=== PATIENT | male | born 1985 | race Caucasian/White ===

== ENCOUNTER → 2016-11-28 | Outpatient (CLI) | payer OTHER ==
[~2016-11-28] MED LIST: ANAPROX DS550 MG PO; CEPHALEXIN500 M1 PO; CIPRO500 MG PO; CIPROFLOXACIN500 MG PO; CLARITIN10 MG PO; DAYPRO600 M1 PO; FLEXERIL5 MG PO; HYDROCODONE BIT1 T11 PO; KEFLEX500 MG PO; LOMOTIL 0.025 M1 TAB PO; MOTRIN800 MG PO; Motrin,Rufen800 MG PO; NAPROSYN500 MG PO; NORCO 5-325 TA1 EACH PO; PERCOCET 325 MG1 TA2 PO; ROBAXIN750 MG PO; TRAMADOL HCL50 MG PO; VENTOLIN H0.09 MG/AC INH; VICODIN 500 MG-1 TAB PO; ZOFRAN ODT8 MG PO
[2016-11-28 07:35] LABS: HEMATOCRIT 45.4 % (42.0-52.0); HEMOGLOBIN 15.6 g/dl (14.0-18.0); MEAN CELL VOLUME 91.7 fl (80.0-94.0); MEAN CORPUSCULAR HGB 31.5 pg (27.0-31.0); MEAN CORPUSCULAR HGB CONC 34.4 g/dl (33.0-37.0); MEAN PLATELET VOLUME 8.8 fl (9.6-12.3); RED BLOOD COUNT 4.95 10*6/uL (4.50-5.90); RED CELL DISTRI WIDTH 11.9 % (0-14.5); WHITE BLOOD COUNT 4.5 10*3/uL (4.8-10.8)
[2016-11-28 08:21] LABS: ALBUMIN 3.8 gm/dl (3.1-4.5); ALKALINE PHOSPHATASE 81 U/L (45-117); BILIRUBIN, TOTAL 0.3 mg/dl (0.2-1.0); BUN 20 mg/dl (7-24); CARBON DIOXIDE 31 mmol/L (21-32); CHLORIDE 106 mmol/L (98-107); CHOLESTEROL 170 mg/dL (<200); EST GLOM FILT AFRICAN AMERICAN > 60 ml/min; GLUCOSE 79 mg/dL (65-99); HDL CHOLESTEROL 60 mg/dl (40-60); LDL CHOLESTEROL 97 mg/dL (9-159); POTASSIUM 4.3 mmol/L (3.5-5.1); SGOT/AST 20 IU/L (3-35); SGPT/ALT 23 U/L (12-78); SODIUM 143 mmol/L (136-145); TOTAL PROTEIN 6.9 gm/dL (6.4-8.2); TRIGLYCERIDES 66 mg/dl (<150); VLDL CHOLESTEROL 13 mg/dL (6-40)
== END | disposition home or self-care (01) ==
LOC: LAB 07:10
PROVIDERS: Family Medicine
DX: E78.00 Pure hypercholesterolemia, unspecified (principal); E55.9 Vitamin D deficiency, unspecified; R53.83 Other fatigue; E74.00 Glycogen storage disease, unspecified; F41.1 Generalized anxiety disorder; R42 Dizziness and giddiness

== ENCOUNTER → 2017-03-21 | Outpatient (CLI) | payer OTHER ==
[2017-03-21 18:00] LABS: HEMATOCRIT 46.1 % (42.0-52.0); HEMOGLOBIN 15.6 g/dl (14.0-18.0); MEAN CELL VOLUME 92.4 fl (80.0-94.0); MEAN CORPUSCULAR HGB 31.3 pg (27.0-31.0); MEAN CORPUSCULAR HGB CONC 33.8 g/dl (33.0-37.0); MEAN PLATELET VOLUME 8.8 fl (9.6-12.3); RED BLOOD COUNT 4.99 10*6/uL (4.50-5.90); RED CELL DISTRI WIDTH 12.1 % (0-14.5); WHITE BLOOD COUNT 8.1 10*3/uL (4.8-10.8)
[2017-03-22 08:16] LABS: HEPATITIS C VIRUS ANTIBODY <0.1 s/co (0.0-0.9); HIV 1+2 AB + HIV1 P24 AG Non Reactive (Non Reactive)
== END | disposition home or self-care (01) ==
LOC: LAB 17:33
PROVIDERS: Family Medicine
DX: D72.819 Decreased white blood cell count, unspecified (principal); Z20.2 Contact with and (suspected) exposure to infections with a predominantly sexual mode of transmission

== ENCOUNTER → 2018-10-05 | Outpatient (CLI) | payer OTHER ==
[2018-10-05 13:33] LABS: HEMATOCRIT 41.9 % (42.0-52.0); HEMOGLOBIN 14.6 g/dl (14.0-18.0); MEAN CELL VOLUME 90.3 fl (80.0-94.0); MEAN CORPUSCULAR HGB 31.5 pg (27.0-31.0); MEAN CORPUSCULAR HGB CONC 34.8 g/dl (33.0-37.0); MEAN PLATELET VOLUME 8.7 fl (9.6-12.3); RED BLOOD COUNT 4.64 10*6/uL (4.50-5.90); RED CELL DISTRI WIDTH 11.9 % (0-14.5); WHITE BLOOD COUNT 5.4 10*3/uL (4.8-10.8)
[2018-10-05 13:49] LABS: ALBUMIN 3.9 gm/dl (3.1-4.5); ALKALINE PHOSPHATASE 76 U/L (45-117); BUN 15 mg/dl (7-24); CHLORIDE 107 mmol/L (98-107); CHOLESTEROL 144 mg/dL (<200); CREATININE 1.11 mg/dL (0.70-1.30); HDL CHOLESTEROL 55 mg/dl (40-60); LDL CHOLESTEROL 80 mg/dL (9-159); POTASSIUM 3.8 mmol/L (3.5-5.1); SGOT/AST 18 IU/L (3-35); SGPT/ALT 24 U/L (12-78); SODIUM 140 mmol/L (136-145); TOTAL PROTEIN 6.9 gm/dL (6.4-8.2); TRIGLYCERIDES 45 mg/dl (<150); VLDL CHOLESTEROL 9 mg/dL (6-40)
[2018-10-06 11:04] LABS: HEPATITIS B SURFACE AG Negative (Negative); HEPATITIS C VIRUS ANTIBODY <0.1 s/co (0.0-0.9)
== END | disposition home or self-care (01) ==
LOC: LAB 13:05
PROVIDERS: Family Medicine
DX: Z13.220 Encounter for screening for lipoid disorders (principal); G62.9 Polyneuropathy, unspecified; M54.9 Dorsalgia, unspecified; F19.90 Other psychoactive substance use, unspecified, uncomplicated

== ENCOUNTER 2019-07-26 12:32 | Emergency (ER) | payer OTHER ==
[~2019-07-26] VITALS: Wt 56.7 kg
[2019-07-26] MEDS ORDERED: ZITHROMAX250 MG PO (14:28)
[2019-07-26] MEDS ORDERED: MEDROL DOSEPAK4 MG PO (14:28)
== END 2019-07-26 14:36 | disposition home or self-care (01) ==
LOC: ED 12:32
DX: J45.909 Unspecified asthma, uncomplicated (principal); Z88.2 Allergy status to sulfonamides

== ENCOUNTER 2020-06-21 20:29 | Emergency (ER) | payer OTHER ==
[~2020-06-21] VITALS: Ht 179.8 cm; Wt 63.5 kg
[~2020-06-21 20:29] MED LIST changes: +MEDROL DOSEPAK4 MG PO; +ZITHROMAX250 MG PO
[2020-06-21 21:19] LABS: BASO # 0.1 10*3/uL (0.0-0.1); EOS # 0.2 10*3/uL (0.0-0.4); EOS % 2.2 % (1.0-4.0); HEMATOCRIT 43.1 % (42.0-52.0); LYMPH # 1.8 10*3/uL (1.3-4.4); MEAN CELL VOLUME 90.9 fl (80.0-94.0); MEAN CORPUSCULAR HGB 30.4 pg (27.0-31.0); MEAN CORPUSCULAR HGB CONC 33.4 g/dl (33.0-37.0); MEAN PLATELET VOLUME 8.7 fl (9.6-12.3); MONO # 0.6 10*3/uL (0.1-1.0); MONO % 6.7 % (3.0-9.0); NEUT # 5.7 10*3/uL (2.3-7.9); NEUT % 67.9 % (47.0-73.0); PLATELET COUNT AUTOMATED 272 10*3/uL (130-400); RED BLOOD COUNT 4.74 10*6/uL (4.50-5.90); WHITE BLOOD COUNT 8.4 10*3/uL (4.8-10.8)
[2020-06-21 21:34] LABS: ALBUMIN 3.9 gm/dl (3.1-4.5); ALKALINE PHOSPHATASE 90 U/L (45-117); BUN 16 mg/dl (7-24); CHLORIDE 105 mmol/L (98-107); CREATININE 1.12 mg/dL (0.70-1.30); POTASSIUM 4.2 mmol/L (3.5-5.1); SGOT/AST 24 IU/L (3-35); SGPT/ALT 25 U/L (12-78); SODIUM 140 mmol/L (136-145); TOTAL PROTEIN 6.8 gm/dL (6.4-8.2)
[2020-06-21] MEDS ORDERED: IBU800 MG PO (22:54)
[2020-06-21 22:59] LABS: CLARITY CLEAR (CLEAR); COLOR YELLOW (YELLOW)
[2020-06-21 23:01] LABS: BILIRUBIN NEGATIVE (NEGATIVE); BLOOD TRACE-INTACT (NEGATIVE); GLUCOSE NEGATIVE (NEGATIVE); KETONE NEGATIVE (NEGATIVE)
[2020-06-21 23:02] LABS: LEUKO ESTERASE NEGATIVE (NEGATIVE); NITRITE NEGATIVE (NEGATIVE); UROBILINOGEN 0.2 E.U./dl (0.2-1.0)
[2020-06-21 23:06] LABS: BACTERIA TRACE; EPITHELIAL CELLS 0-2; MUCOUS 2+
== END 2020-06-21 23:25 | disposition home or self-care (01) ==
LOC: ED 20:29
PROVIDERS: Nurse Practitioner Family
DX: I86.1 Scrotal varices (principal); J45.909 Unspecified asthma, uncomplicated; Z88.2 Allergy status to sulfonamides

== ENCOUNTER → 2020-12-17 | Outpatient (CLI) | payer OTHER ==
[~2020-12-17] MED LIST changes: +IBU800 MG PO
[2020-12-17 17:41] LABS: HEMATOCRIT 43.5 % (42.0-52.0); MEAN CELL VOLUME 90.1 fl (80.0-94.0); MEAN CORPUSCULAR HGB 31.3 pg (27.0-31.0); MEAN CORPUSCULAR HGB CONC 34.7 g/dl (33.0-37.0); MEAN PLATELET VOLUME 8.6 fl (9.6-12.3); RED BLOOD COUNT 4.83 10*6/uL (4.50-5.90); RED CELL DISTRI WIDTH 11.9 % (0-14.5); WHITE BLOOD COUNT 5.7 10*3/uL (4.8-10.8)
[2020-12-17 18:13] LABS: ALBUMIN 4.2 gm/dl (3.1-4.5); BUN 15 mg/dl (7-24); CHLORIDE 108 mmol/L (98-107); CHOLESTEROL 166 mg/dL (<200); CREATININE 0.93 mg/dL (0.70-1.30); POTASSIUM 4.4 mmol/L (3.5-5.1); SGOT/AST 22 IU/L (3-35); SGPT/ALT 25 U/L (12-78); SODIUM 140 mmol/L (136-145); TRIGLYCERIDES 61 mg/dl (<150); VLDL CHOLESTEROL 12 mg/dL (6-40)
[2020-12-17 18:19] LABS: ALKALINE PHOSPHATASE 85 U/L (45-117); FREE T4 0.92 ng/dl (0.76-1.46); HDL CHOLESTEROL 54 mg/dl (40-60); LDL CHOLESTEROL 100 mg/dL (9-159)
[2020-12-18 09:07] LABS: HEP B CORE AB, IGM Negative (Negative); HEPATITIS B SURFACE AG Negative (Negative); HEPATITIS C VIRUS ANTIBODY <0.1 s/co (0.0-0.9)
== END | disposition home or self-care (01) ==
LOC: LAB 16:52
PROVIDERS: ATTEND Family Medicine
DX: E78.00 Pure hypercholesterolemia, unspecified (principal); R00.2 Palpitations; R07.9 Chest pain, unspecified

== ENCOUNTER → 2020-12-29 | Outpatient (CLI) | payer OTHER | END | disposition home or self-care (01) | LOC: CARD 07:46 | PROVIDERS: ATTEND Family Medicine | DX: R00.2 Palpitations (principal) ==

== ENCOUNTER 2021-03-26 12:34 | Emergency (ER) | payer OTHER ==
[~2021-03-26] VITALS: Ht 175.2 cm; Wt 65.8 kg
[2021-03-26] MEDS ORDERED: IBUPROFEN600 MG PO (16:17)
[2021-03-26] MEDS ORDERED: HYDROCODONE-AC1 EAC1 PO (16:17)
== END 2021-03-26 16:26 | disposition home or self-care (01) ==
LOC: ED 12:34
DX: S20.212A Contusion of left front wall of thorax, initial encounter (principal); Z88.2 Allergy status to sulfonamides; Z79.899 Other long term (current) drug therapy; Z98.890 Other specified postprocedural states; X50.9XXA Other and unspecified overexertion or strenuous movements or postures, initial encounter; Y93.89 Activity, other specified; Y92.89 Other specified places as the place of occurrence of the external cause; Y99.8 Other external cause status

== ENCOUNTER 2021-09-03 21:00 | Emergency (ER) | payer OTHER ==
[~2021-09-03] VITALS: Ht 175.2 cm; Wt 63.5 kg
[~2021-09-03 21:00] MED LIST changes: +HYDROCODONE-AC1 EAC1 PO; +IBUPROFEN600 MG PO
[2021-09-04] MEDS ORDERED: IBUPROFEN600 MG PO (15:48)
== END 2021-09-03 22:15 | disposition left against medical advice (07) ==
LOC: ED 21:00
DX: S49.92XA Unspecified injury of left shoulder and upper arm, initial encounter (principal); Z53.21 Procedure and treatment not carried out due to patient leaving prior to being seen by health care provider; X58.XXXA Exposure to other specified factors, initial encounter; Y93.89 Activity, other specified; Y92.89 Other specified places as the place of occurrence of the external cause; Y99.8 Other external cause status

== ENCOUNTER 2021-09-04 13:26 | Emergency (ER) | payer OTHER ==
[~2021-09-04] VITALS: Ht 175.2 cm; Wt 63.5 kg
[2021-09-04] MEDS ORDERED: IBUPROFEN600 MG PO (15:48)
== END 2021-09-04 15:57 | disposition home or self-care (01) ==
LOC: ED 13:26
DX: M77.8 Other enthesopathies, not elsewhere classified (principal); Z88.2 Allergy status to sulfonamides

== ENCOUNTER → 2023-10-23 | Outpatient (CLI) | payer OTHER ==
[2023-10-23 12:22] LABS: HEMATOCRIT 44.7 % (42.0-52.0); MEAN CELL VOLUME 92.9 fl (80.0-94.0); MEAN CORPUSCULAR HGB 31.6 pg (27.0-31.0); MEAN PLATELET VOLUME 8.4 fl (9.6-12.3); RED BLOOD COUNT 4.81 10*6/uL (4.50-5.90); RED CELL DISTRI WIDTH 12.4 % (0-14.5); WHITE BLOOD COUNT 5.8 10*3/uL (4.8-10.8)
[2023-10-23 12:45] LABS: ALKALINE PHOSPHATASE 78 U/L (46-116); BUN 13 mg/dl (9-23); CHLORIDE 107 mmol/L (98-107); CHOLESTEROL 171 mg/dL (<200); LDL CHOLESTEROL 94 mg/dL (9-159); POTASSIUM 4.8 mmol/L (3.4-5.1); SGPT/ALT 18 U/L (5-49); TOTAL PROTEIN 6.6 gm/dL (6.0-8.0); TRIGLYCERIDES 133 mg/dl (<150)
== END | disposition home or self-care (01) ==
LOC: LAB 12:03
PROVIDERS: ATTEND Family Medicine
DX: Z13.220 Encounter for screening for lipoid disorders (principal); E55.9 Vitamin D deficiency, unspecified; J45.909 Unspecified asthma, uncomplicated

== ENCOUNTER → 2025-10-18 | Outpatient (CLI) | payer OTHER ==
[2025-10-18 08:04] LABS: MEAN CELL VOLUME 91.7 fl (80.0-94.0); MEAN CORPUSCULAR HGB 31.0 pg (27.0-31.0); MEAN PLATELET VOLUME 8.3 fl (9.6-12.3); NUCLEATED RED BLOOD CELL 0.0 % (0.0-0.0); NUCLEATED RED BLOOD CELL 0.0 10*3/uL (0.0-0.0); PLATELET COUNT AUTOMATED 245.0 10*3/uL (130-400); RED CELL DISTRI WIDTH 12.2 % (0-14.5)
[2025-10-18 08:37] LABS: BUN 16 mg/dl (9-23); LDL CHOLESTEROL 115 mg/dL (9-159); SGPT/ALT 24 U/L (5-49)
[2025-10-18 08:39] LABS: VITAMIN D, 25-HYDROXY 38.1 ng/mL (30-100)
== END | disposition home or self-care (01) ==
LOC: LAB 07:21
PROVIDERS: ATTEND Family Medicine
DX: E55.9 Vitamin D deficiency, unspecified (principal); J45.909 Unspecified asthma, uncomplicated; E78.00 Pure hypercholesterolemia, unspecified; Z00.00 Encounter for general adult medical examination without abnormal findings